=== PATIENT | male | born 1995 | race Caucasian/White ===

== ENCOUNTER 2018-04-26 16:35 | Emergency (ER) | payer BC ==
--- NOTE | 2018-04-26 16:47 | Emergency Department Record ---
Anxiety - General Chief Complaint: Anxiety Stated Complaint: ANXIETY Time Seen by Provider: 04/26/18 16:42 Source: Patient Mode of Arrival: Ambulatory Limitations: No limitations - History of Present Illness Initial Comments: Pt from work with "anxiety" and hx of the same "twice a week or so". Pt felt odd at work and "tried to calm down". [place] heart racign and started to breath fast. Tingles to lips and fingers. No CHRISTIAN. No Weakness. Now feeling better on arrival. Never seen by a physician for these attacks. Always able to resolve without medication. MD Complaint: Anxiety Onset/Timin -: Hour(s) Symptoms: Dyspnea, Extremity numbness/tingling, Palpitations, Periorial numbness /tingling Place: Work Previous History of Same: Yes Severity: Moderate Quality: Intermittant Provoking factors: None known Improves With: Rest Worsens With: Nothing Associated symptoms: Denies other symptoms - Related Data Home Medications: Home Medications Medication Instructions Recorded Confirmed Last Taken No Home Med [NO HOME MEDS] 04/26/18 04/26/18 Unknown Allergies/Adverse Reactions: Allergies Allergy/AdvReac Type Severity Reaction Status Date / Time No Known Drug Allergies Allergy Verified 04/26/18 16:44 Review of Systems Constitutional: Denies: Chills, Fever, Weakness Eyes: Denies: Eye pain, Vision change ENT: Denies: Congestion, Dental pain Respiratory: Denies: Cough, Dyspnea Cardiovascular: Reports: Palpitations. Denies: Chest pain Endocrine: Denies: Fatigue Gastrointestinal: Reports: Nausea. Denies: Abdominal pain, Vomiting Musculoskeletal: Denies: Back pain, Joint swelling Skin: Denies: Rash Neurological: Reports: Tingling. Denies: Abnormal gait, Headache, Seizure, Tremors, Weakness Psychiatric: Reports: Anxiety. Denies: Auditory hallucinations, Suicidal thoughts, Visual hallucinations Physical Exam - General General Appearance: Alert, Oriented x3, Cooperative, Mild distress - Eye Eye exam: PERRL, EOMI. negative: Nystagmus - ENT ENT exam: Mucous membranes moist, Normal external ear exam, Normal orophraynx, TM's normal bilaterally - Neck Neck exam: Normal inspection. negative: Tenderness, Thyromegaly - Respiratory Respiratory exam: Normal lung sounds bilaterally. negative: Rhonchi, Wheezes - Cardiovascular Cardiovascular Exam: Regular rate, Normal rhythm. negative: Diastolic murmur, Irregular rhythm, Systolic murmur - GI/Abdominal GI/Abdominal exam: Soft, Normal bowel sounds. negative: Tenderness - Extremities Extremities exam: Normal inspection. negative: Calf tenderness, Tenderness - Back Back exam: Reports: Normal inspection - Neurological Neurological exam: Alert, Normal gait, Oriented X3 - Psychiatric Psychiatric exam: Anxious, Normal affect, Normal mood - Skin Skin exam: Normal color Course - Reevaluation(s) Reevaluation #1: 04/26/18 16:47 Pt on montior with HR 90s and resp 10. Sat 99%. Refuses meds as he is driving home. Will monitor for a period in ED Reevaluation #2: 04/26/18 17:34 Pt agrees to requested UDS by employers. Feels better and wants to leave. Disposition Disposition: Discharge Clinical Impression: Anxiety reaction Disposition: Home, Self-Care Condition: (1) Good Instructions: Generalized Anxiety Disorder (ED) Referrals: [facility] [Provider Group] Forms: Patient Portal Access Quality - Quality Measures Quality Measures: N/A - Blood Pressure Screening Does Patient Have Any of the Following: No Blood Pressure Classification: Pre-Hypertensive BP Reading Systolic Measurement: 133 Diastolic Measurement: 88 Screening for High Blood Pressure: < Pre-Hypertensive BP, F/U Documented > [ [id number]] Pre-Hypertensive Follow-up Interventions: Follow-up with rescreen every year.
[2018-04-26 18:16] LABS: AMPHETAMINE SCREEN URINE NOT DETECTED; BARBITURATE SCREEN URINE NOT DETECTED; BENZODIAZEPINE SCREEN URINE NOT DETECTED; COCAINE SCREEN URINE NOT DETECTED; METHADONE SCREEN URINE NOT DETECTED; METHAMPHETAMINE SCREEN NOT DETECTED; OPIATE SCREEN URINE NOT DETECTED; OXYCODONE SCREEN URINE NOT DETECTED; PHENCYCLIDINE SCREEN URINE NOT DETECTED; PROPOXYPHENE SCREEN URINE NOT DETECTED; THC SCREEN URINE NOT DETECTED; TRICYCLIC ANTIDEPRESSANT SCRN NOT DETECTED
== END 2018-04-26 18:22 | disposition home or self-care (01) ==
LOC: ER 16:35
DX: F41.1 Generalized anxiety disorder (principal); R06.00 Dyspnea, unspecified; N50.9 Disorder of male genital organs, unspecified
CPT/HCPCS: 80305; 99283